=== PATIENT | male | born 1940 | race Caucasian/White ===

== ENCOUNTER 2016-11-30 06:47 | Day surgery (SDC) | payer MEDICARE, BC ==
[~2016-11-30] VITALS: Ht 175.3 cm; Wt 93.0 kg
[~2016-11-30 06:47] MED LIST: 1-ME1LIQ PO; ALPR0.5T3 PO; AMBI12.5 PO; AMOX500T PO; ASPI81TA82 PO; BISA10R PR; CENTTAB20 PO; CINN500T PO; DOCU1CAP39 PO; EFFE150C PO; HYDR-3580 PO; HYDR-755 PO; IRON27TA PO; MELA5CAP2 PO; MELO15TA2 PO; PROS5TAB2 PO; RANI150 PO; ROPI.5 PO; TERA2CAP3 PO; Z.0.COMMODE-3:1; Z.0.WALKERFRONT; ZOCO10TA PO
[2016-11-30 07:08] VITALS: BP 169/92; PULSE 90; RESP 20; TEMP 98.1; O2SAT 96
[2016-11-30] MEDS ORDERED: AMOX500T PO (07:21)
[2016-11-30] MEDS ORDERED: DICL75TA PO (07:21)
[2016-11-30] MEDS ORDERED: ZOCO20TA PO (07:21)
[2016-11-30] MEDS ORDERED: ROPI1TAB PO (07:21)
[2016-11-30] MEDS ORDERED: MELAPOW2 (07:21)
[2016-11-30] MEDS ORDERED: BIOT50005 PO (07:21)
[2016-11-30] MEDS ORDERED: CYCL1TAB29 PO (07:21)
[2016-11-30] MEDS ORDERED: ROPI0.5T PO (07:21)
[2016-11-30] MEDS ORDERED: ALPR0.5T3 PO (07:21)
[2016-11-30] MEDS ORDERED: FLUO1TAB17 (07:21)
[2016-11-30] MEDS ORDERED: RANI150T PO (07:21)
[2016-11-30] MEDS ORDERED: MELA3TAB23 (07:21)
[2016-11-30] MEDS ORDERED: ASPI81TA81 (07:21)
[2016-11-30] MEDS ORDERED: HYDR1CAP30 PO (07:21)
[2016-11-30] MEDS ORDERED: MOBI15TA PO (07:21)
[2016-11-30] MEDS ORDERED: AMLO5TAB2 PO (07:21)
[2016-11-30] MEDS ORDERED: PROS5TAB PO (07:21)
[2016-11-30] MEDS ORDERED: TERA2CAP3 PO (07:21)
[2016-11-30] MEDS ORDERED: LIDOCAINE 1%/EPINEPHrine 1:100,000 SOLN 20 ML VIAL ONE (07:28)
[2016-11-30 07:44] LABS: AUTOMATED NEUTROPHIL # 3.5 TH/MM3 (1.8-7.7); BASOPHIL % 0.5 % (0.0-2.0); EOSINOPHIL # 0.3 TH/MM3 (0-0.4); EOSINOPHIL % 4.5 % (0.0-4.0); HEMATOCRIT 37.3 % (39.0-51.0); HEMO FLAGS DIFF FINAL; LYMPH % 23.4 % (9.0-44.0); LYMPHOCYTE # 1.4 TH/MM3 (1.0-4.8); MEAN CELL VOLUME 86.5 FL (80.0-100.0); MEAN CORPUSCULAR HEMOGLOBIN 30.3 PG (27.0-34.0); MONO % 13.1 % (0.0-8.0); NEUT % 58.5 % (16.0-70.0); PLATELET COUNT 236 TH/MM3 (150-450); RED BLOOD COUNT 4.31 MIL/MM3 (4.50-5.90); RED CELL DISTRIBUTION WIDTH 13.5 % (11.6-17.2); WHITE BLOOD COUNT 5.9 TH/MM3 (4.0-11.0)
[2016-11-30] MEDS ORDERED: SODIUM CHLOR 0.9% 1000 ML IV SCH (07:45)
[2016-11-30 07:56] LABS: APTT (PATIENT) 26.4 SEC (24.3-30.1); PROTHROMBIN TIME - PATIENT 10.7 SEC (9.8-11.6)
[2016-11-30] MEDS ORDERED: MIDAZOLAM HCL 2 MG/2 ML VIAL ONE (08:27)
[2016-11-30 09:10] VITALS: BP 137/69; PULSE 76; RESP 20; TEMP 97.7; O2SAT 92
[2016-11-30 09:25] VITALS: BP 133/66; PULSE 73; RESP 16; O2SAT 93
[2016-11-30 10:00] VITALS: BP 129/75; PULSE 75; RESP 16; O2SAT 93
[2016-11-30 10:28] VITALS: BP 128/69; PULSE 72; RESP 16; O2SAT 93
[2016-11-30 11:00] VITALS: BP 140/71; PULSE 76; RESP 16; O2SAT 93
--- NOTE | 2016-11-30 14:58 | RADRPT ---
EXAM DATE/TIME: 11/30/2016 08:35 [facility] COMPARISON: No previous studies available for comparison. INDICATIONS : Right chest wall mass. SEDATION TIME: 30 minutes BIOPSY SITE: Right chest wall MEDICATION(S): 1.) 2 mg meperidine (Demerol) IV 2.) 200 mcg fentanyl (Sublimaze) IV DEVICE(S): 1.) 18 gauge Temno core biopsy needle MEDICAL HISTORY : Hypertension. SURGICAL HISTORY : None. ENCOUNTER: Initial ACUITY: 1 day PAIN SCORE: 0/10 LOCATION: Right chest A total of two core specimen(s) were obtained and sent to the laboratory for pathologic evaluation. PROCEDURE: 1. CT guided chest wall, right biopsy of the costochondral junction. 2. Conscious sedation with continuous EKG and oximetry monitoring. 3. EKG and oximetry remained stable throughout the procedure. Prior to the procedure informed consent was obtained. Any appropriate prior imaging studies were rev iewed. The site was prepped in a sterile fashion. Full sterile technique was used, including cap, mask, marky rile gloves and gown and a large sterile sheet. Hand hygiene and 2% chlorhexidine and/or betadine/al cohol prep was utilized per protocol for cutaneous antisepsis. The skin and subcutaneous tissues wer e infiltrated with local anesthetic solution. With CT guidance the previously identified target was localized. Biopsy was performed using the presc ribed needle as above. Adequate hemostasis was obtained with compression at the puncture site. Follow-up CT scan reveals no hemorrhage. The patient tolerated the procedure well and there were no complications. The patient was returned to the Radiology Outpatient Unit in stable condition. CONCLUSION: Uncomplicated CT guided biopsy. Zhen Calvin MD on November 30, 2016 at 14:56 Board Certified Radiologist. This report was verified electronically.
== END 2016-11-30 11:15 | disposition home or self-care (01) ==
LOC: HRAD 06:47 → HRIP 06:49 → EDSTATUS 07:00 → HRAD 11:15
PROVIDERS: ATTEND Specialist
DX: R22.2 Localized swelling, mass and lump, trunk (principal); I10 Essential (primary) hypertension
CPT/HCPCS: 20206; 77012; 85025; 85610; 85730; 88307; 99152; 99153; J2250; J3010; J7030; 88305

== ENCOUNTER 2017-04-07 07:30 | Inpatient (IN) | payer MEDICARE, BC ==
[~2017-04-07] VITALS: Ht 175.3 cm; Wt 91.0 kg
[~2017-04-07 07:30] MED LIST changes: -1-ME1LIQ PO; -AMBI12.5 PO; +AMLO5TAB2 PO; -AMOX500T PO; -ASPI81TA82 PO; -BISA10R PR; -CENTTAB20 PO; -CINN500T PO; +CYCL1TAB29 PO; -DOCU1CAP39 PO; -EFFE150C PO; +FLUO1TAB17 PO; -HYDR-3580 PO; -HYDR-755 PO; +HYDR1CAP30 PO; -IRON27TA PO; -MELA5CAP2 PO; -MELO15TA2 PO; +PROS5TAB PO; -PROS5TAB2 PO; -RANI150 PO; +RANI150T PO; -ROPI.5 PO; +ROPI0.5T PO; -Z.0.COMMODE-3:1; -Z.0.WALKERFRONT; -ZOCO10TA PO; +ZOCO20TA PO
[2017-05-12] MEDS ORDERED: EPIN1INJ24 IM (13:42)
[2017-05-12] MEDS ORDERED: CLON0.5T PO (13:42)
[2017-05-12] MEDS ORDERED: OPTI0.5D3 EACH EYE (13:42)
[2017-07-11] MEDS ORDERED: BIONSOL EACH EYE (12:10)
[2017-07-11] MEDS ORDERED: PANT40TA3 PO (12:10)
[2017-07-11] MEDS ORDERED: CENTCHW3 PO (12:10)
[2017-07-11] MEDS ORDERED: VITA1000 PO (12:10)
[2017-07-11] MEDS ORDERED: HYDR-3580 PO (12:10)
[2017-07-11] MEDS ORDERED: CINN500C13 PO (12:10)
[2017-07-11] MEDS ORDERED: AMPI500C8 PO (12:10)
[2017-07-12] MEDS ORDERED: INSULIN HUMAN REGULAR 1,000 UNITS/10 ML VIAL SQ PRN (08:00)
[2017-07-12] MEDS ORDERED: CHLORHEXIDINE GLUCONATE 2 % 1 PACK (2 CLOTHS) TOPICAL PRN (08:00)
[2017-07-12] MEDS ORDERED: SODIUM CHLORID 0.9% 500 ML IV PRN (08:00)
[2017-07-12] MEDS ORDERED: LACTATED RINGER'S 1000 ML IV PRN (08:00)
[2017-07-12] MEDS ORDERED: POVIDONE IODINE 5% (ANTISEPSIS KIT) 4 APPLICATIONS EACH NARE PRN (08:00)
[2017-07-12] MEDS ORDERED: METOPROLOL TARTRATE 25 MG TAB PO PRN (08:00)
[2017-07-12] MEDS ORDERED: VANCOMYCIN 1000 MG/NS 250 ML (for <70 kg) IV SCH ×2 (08:15)
[2017-07-12] MEDS ORDERED: POVIDONE IODINE 7.5% SCRUB 118 ML BOTTLE TOPICAL SCH (08:15)
[2017-07-12] MEDS ORDERED: ceFAZolin 2 GM PREMIX 50 ML IV SCH (08:15)
[2017-07-12] MEDS ORDERED: GENTAMICIN SULFATE 80 MG/2 ML VIAL ONE (08:40)
[2017-07-12] MEDS ORDERED: FAMOTIDINE 20 MG/2 ML VIAL ONE (10:26)
[2017-07-12] MEDS ORDERED: ACETAMINOPHEN 1000 MG/100 ML 100 ML IV ONE (10:26)
[2017-07-12] MEDS ORDERED: ROCURONIUM INJ 50 MG/5 ML SYRINGE IV PUSH ONE (12:00)
[2017-07-12] MEDS ORDERED: PHENYLEPH/NS 1000 MCG/10 ML SYR IV ONE (12:00)
[2017-07-12] MEDS ORDERED: LIDOCAINE HCL 1% PF 5 ML AMPULE OTHER ONE (12:00)
[2017-07-12] MEDS ORDERED: ONDANSETRON HCL 4 MG/2 ML VIAL IV PUSH ONE (12:00)
[2017-07-12] MEDS ORDERED: DEXAMETHASONE SOD PHOS 4 MG/ML VIAL IV ONE (12:00)
[2017-07-12] MEDS ORDERED: PROPOFOL 200 MG/20 ML AMP IV ONE (12:00)
[2017-07-12] MEDS ORDERED: MIDAZOLAM HCL 2 MG/2 ML VIAL IV ONE (12:00)
[2017-07-12] MEDS ORDERED: ePHEDrine/NS 25 MG/5 ML SYR IV ONE (12:00)
[2017-07-12] MEDS ORDERED: ePHEDrine/NS 25 MG/5 ML SYR ONE (12:16)
[2017-07-12] MEDS: LACTATED RINGER'S 1000 ML INJ 1,000 ML IV SCH (13:04)
--- NOTE | 2017-07-12 13:11 | PD.OP ---
cc: Jesse Mariano. Operative Report Date of Surgery: Jul 12, 2017 Preoperative Diagnosis: Cervical spinal stenosis. Cervical radiculopathy. Cervical myelopathy. Status post corpectomy of C4 with decompression and anterior fusion C3 to C6 Postoperative Diagnosis: Same Procedure: Posterior cervical fusion C3 4, C4 5, C5 6. Placement of intra-facet cages bilateral C3 4, right C4 5, bilateral C5 6. Right posterior iliac crest bone graft Anesthesia: Gen. Surgeon: Jesse Mariano [employer] Aid(s): MICHOACANO Avalos Operation and Findings: EBL: 100 cc INDICATIONS: This patient is a 76-year-old male with severe instability and cervical stenosis with myelopathic findings. He's had an anterior decompression and fusion C3 to C6. He now presents for staged posterior cervical fusion across the same levels NOTE: Marli Avalos PA-C was present for the entire surgical procedure as my human resource assistant. In my medical opinion her skill and care was necessary for proper management of this patient PROCEDURE: The patient was brought the operating room and anesthetized in the supine position. The patient was positioned prone on a [place] table. The arms were placed out along the side and taping was utilized to ensure adequate visualization. AP and lateral radiographic images were used identifying the proper level and allowing excellent exposure for purpose of the cervical fusion. A timeout was done and antibiotics were given within a routine time window. A small incision was made over the left iliac crest bone graft. A series of cores of bone graft were harvested with a special percutaneous device. The bone graft was taken to the back table to be mixed with stem cell bone graft for the later part of the case Using AP and lateral radiographs, skin markings were made. On the right side and 18-gauge spinal needle was placed down to the proper level. The left side a separate incision was made and we used the [employer] system. Exposure was afforded down to the proper level. Under visualization, a chisel was placed down to the C 56 level. This was confirmed under radiographs to be in proper position. Exposure was satisfactory. This is placed down into the facet joint at that level. A decorticating device was utilized decorticating the bone of the facet above and below. A retractor was placed down over the access chisel allowing exposure to the joint and exposure to the articular cartilage. A drilling system was utilized removing cartilage and bone this region followed by a rasp. On the back table demineralized bone matrix was mixed with Nucel stem cells and a autogenous bone graft. A combination of both these were then paced placed into proper cages. The cages were impacted into the proper position and checked again under AP and lateral fluoroscopic images. A transfixation screw was placed into the cage having excellent fixation into the facet joint of the level above. The back side of the cage was filled with additional bone graft which was tamped into position. The retractor was removed. On the right side a separate incision was made. Using the likewise sequence of access to the same level, an incision was made allowing visualization for placement of an access chisel which was placed into the joint followed by decortication with excellent visualization. A final retractor was positioned holding this while we were able to drill and use the rasp. The joint was prepared and we created a space for the cage. The cage was filled with bone graft and impacted in proper position. A transfixation screw was fixated at that time and alignment was satisfactory. Additional bone graft placed along the posterior aspect of the cage and the facet joint and was tamped into position. At the C4 5 level, this was repeated in the likewise fashion starting from the right side. A decorticating device was utilized decorticating the bone of the facet above and below. A retractor was placed down over the access chisel allowing exposure to the joint and exposure to the articular cartilage. A drilling system was utilized removing cartilage and bone this region followed by a rasp. On the back table demineralized bone matrix was mixed with Nucel stem cells and a autogenous bone graft. A combination of both these were then paced placed into proper cages. The cages were impacted into the proper position and checked again under AP and lateral fluoroscopic images. A transfixation screw was placed into the cage having excellent fixation into the facet joint of the level above. The back side of the cage was filled with additional bone graft which was tamped into position. The retractor was removed. On the right side there did not appear to be a viable joint which was also confirmed by CT scan. It was ill advised to proceed forward with placing a cage to the left at the C4-C5 level. At the C3 4 level, this was repeated in the likewise fashion. A decorticating device was utilized decorticating the bone of the facet above and below. A retractor was placed down over the access chisel allowing exposure to the joint and exposure to the articular cartilage. A drilling system was utilized removing cartilage and bone this region followed by a rasp. On the back table demineralized bone matrix was mixed with Nucel stem cells and a autogenous bone graft. A combination of both these were then paced placed into proper cages. The cages were impacted into the proper position and checked again under AP and lateral fluoroscopic images. A transfixation screw was placed into the cage having excellent fixation into the facet joint of the level above. The back side of the cage was filled with additional bone graft which was tamped into position. The retractor was removed. On the right side this was repeated in the likewise fashion. Using the likewise sequence of access to the same level. An access chisel was placed into the joint followed by decortication with excellent visualization. A final retractor was positioned holding this while we were able to drill and use the rasp. The joint was prepared and we created a space for the cage. The cage was filled with bone graft and impacted in proper position. A transfixation screw was fixated at that time and alignment was satisfactory. Additional bone graft placed along the posterior aspect of the cage and the facet joint and was tamped into position. Intraoperative x-rays in AP and lateral plane showed excellent positioning and stabilization . The wound was irrigated copiously. Hemostasis was controlled. The fascia was closed with interrupted Vicryl suture skin and subcutaneous tissue with 3-0 Vicryl suture followed by Dermabond. The sponge count needle counts and sponge counts were all correct. The patient tolerated the procedure well as taken to the recovery room in satisfactory condition. FINDINGS: This patient had a severe deformity. A typical findings of the facet joint lead to a very tedious dissection allowing excellent exposure and placement of the cages. There was no complication that was appreciated Jesse Mariano MD Jul 12, 2017 13:11
[2017-07-12] MEDS ORDERED: HYDR-3580 PO (13:12)
[2017-07-12] MEDS ORDERED: Post-op Orders (for Pharmacy) MISC XX ONE (13:15)
[2017-07-12] MEDS ORDERED: ONDANSETRON HCL 4 MG/2 ML VIAL IV PUSH PRN (13:15)
[2017-07-12] MEDS ORDERED: SODIUM CHLORIDE 0.9% FLUSH 5 ML FLUSH IVF PRN (13:15)
[2017-07-12] MEDS ORDERED: ACETAMINOPHEN/HYDROcodone 325 MG/7.5 MG TAB PO PRN (13:15)
[2017-07-12] MEDS ORDERED: ALPRAZolam 0.5 MG TAB PO PRN (13:15)
[2017-07-12] MEDS ORDERED: MORPHINE SULFATE 4 MG/ML INJ IV PUSH PRN (13:15)
[2017-07-12] MEDS ORDERED: hydrOXYzine PAMOATE 25 MG CAP PO PRN (13:15)
[2017-07-12] MEDS ORDERED: BISACODYL 10 MG SUPP RECTAL PRN (13:15)
[2017-07-12] MEDS ORDERED: *morphine SULFATE 8 MG/ML PERIprocedure ONLY ONE (14:49)
[2017-07-12 14:57] VITALS: BP 121/64; PULSE 89; RESP 17; TEMP 95.6; O2SAT 94
[2017-07-12] MEDS ORDERED: DO NOT ADM ANY ANTICOAGULANT DRUGS PRN (15:15)
[2017-07-12] MEDS: ACETAMINOPHEN/HYDROcodone 325 MG/7.5 MG TAB PO PRN (18:34)
[2017-07-12] MEDS: FLUoxetine HCL 20 MG CAP PO SCH ×2 (18:34→21:32)
--- NOTE | 2017-07-12 18:43 | RADRPT ---
EXAM DATE/TIME: 07/12/2017 12:57 [facility] COMPARISON: [facility] ([facility]), June 30, 2017, 16:51. INDICATIONS : C3-C6 Posterior cervical fusion. MEDICAL HISTORY : Hypertension. Gastroesophageal reflux disease. Rheumatoid arthritis. SURGICAL HISTORY : Anterior cervical disc fusion. ENCOUNTER: Initial ACUITY: 1 day PAIN SCORE: Non-responsive. LOCATION: Cervical spine. FINDINGS: Status post anterior cervical fusion from C3-C6. There appears to be good alignment on these 2 views. The hardware is grossly intact. CONCLUSION: Good alignment on this postoperative examination. Miguel Shafer MD on July 12, 2017 at 18:41 Board Certified Radiologist. This report was verified electronically.
[2017-07-12 19:15] VITALS: BP 136/65; PULSE 69; RESP 19; TEMP 96.4; O2SAT 98
[2017-07-12] MEDS: SODIUM CHLORIDE 0.9% FLUSH 5 ML FLUSH IVF SCH (21:00)
[2017-07-12] MEDS ORDERED: clonazePAM 0.5 MG TAB PO SCH (21:00)
[2017-07-12] MEDS ORDERED: TERAZOSIN HCL 1 MG CAP PO SCH (21:00)
[2017-07-12] MEDS: CYCLOBENZAPRINE HCL 10 MG TAB PO SCH (21:31)
[2017-07-12] MEDS: amLODIPine BESYLATE 5 MG TAB PO SCH (21:32)
[2017-07-12 23:45] VITALS: BP 136/70; PULSE 96; RESP 18; TEMP 96; O2SAT 94
[2017-07-13] MEDS: LACTATED RINGER'S 1000 ML INJ 1,000 ML IV SCH (01:34)
[2017-07-13 04:36] VITALS: BP 124/69; PULSE 96; RESP 18; TEMP 97.6; O2SAT 92
[2017-07-13 08:00] VITALS: BP 139/73; PULSE 95; RESP 18; TEMP 96.7; O2SAT 95
[2017-07-13] MEDS: CYCLOBENZAPRINE HCL 10 MG TAB PO SCH (08:40)
[2017-07-13] MEDS: FLUoxetine HCL 20 MG CAP PO SCH ×2 (08:40→12:13)
[2017-07-13] MEDS: amLODIPine BESYLATE 5 MG TAB PO SCH (08:40)
[2017-07-13] MEDS: SODIUM CHLORIDE 0.9% FLUSH 5 ML FLUSH IVF SCH (08:45)
[2017-07-13] MEDS ORDERED: MULTIVITAMINS/MINERALS THERAPEUTIC TAB PO SCH (09:00)
[2017-07-13] MEDS ORDERED: PRAVASTATIN SOD 40 MG TAB PO SCH (09:00)
[2017-07-13] MEDS ORDERED: DOCUSATE SODIUM 100 MG CAP PO SCH (09:00)
[2017-07-13 10:10] VITALS: O2SAT 97
[2017-07-13 11:41] VITALS: BP 139/64; PULSE 90; RESP 18; TEMP 97.8; O2SAT 96
[2017-07-13] MEDS: ACETAMINOPHEN/HYDROcodone 325 MG/7.5 MG TAB PO PRN (12:13)
--- NOTE | 2017-07-13 13:11 | HHI.DCPOC ---
Discharge Care Plan Diagnosis: (1) Cervical stenosis of spine (2) Cervical myelopathy with cervical radiculopathy Your Health Problems Are: Incision/Drains Swelling Goals to Promote Your Health * To prevent worsening of your condition and complications * To maintain your health at the optimal level Directions to Meet Your Goals Take your medications as prescribed Follow your dietary instruction Follow activity as directed Keep your appointments as scheduled Take your immunizations and boosters as scheduled If your symptoms worsen call your PCP, if no PCP go to Urgent Care Center or Emergency Room Smoking is Dangerous to Your Health. Avoid second hand smoke Call the 24-hour hour crisis hotline for domestic abuse at Erma Ragland Jul 13, 2017 13:11
--- NOTE | 2017-07-13 13:13 | HHI.DS ---
Discharge Summary Admission Date Jul 12, 2017 at 07:25 Discharge Date: Jul 13, 2017 Admitting Diagnosis see below Diagnosis: (1) Cervical stenosis of spine Diagnosis: Principal ICD Codes: M48.02 - Spinal stenosis, cervical region (2) Cervical myelopathy with cervical radiculopathy Diagnosis: Principal ICD Codes: M47.12 - Other spondylosis with myelopathy, cervical region Procedures Posterior cervical fusion C34, 45, 56, bone graft. Brief History This is a 76 year old male patient... previous ACDF 07/01 C3-6 corpectomy C4. Stage psf C3-6 Pt Condition on Discharge: Stable Discharge Disposition: Discharge Home Discharge Instructions Diet Instructions: As Tolerated, No Restrictions, High Fiber Diet Activities You Can Perform: See Additionl Instruction Activities to Avoid: Strenuous Activity Additional Activity Instruc.: Full-time brace wear when out of bed x 4-6 weeks New Medications: Hydrocodone-Acetaminophen (Hydrocodone-Acetaminophen) 7.5-325 mg Tab 1 TAB PO Q4H PRN for PAIN, #50 TAB Continued Medications: Alprazolam (Alprazolam) 0.5 Mg Tab 0.5 MG PO BID PRN for ANXIETY, TAB 0 Refills Amlodipine (Amlodipine) 5 Mg Tab 5 MG PO BID for Blood Pressure Management, #30 TAB 0 Refills Ampicillin (Ampicillin) 500 Mg Cap 500 MG PO QID for UTI, CAP 0 Refills Carboxymethylcellulos/Glycerin (Refresh Optive Eye Drops) 15 Ml Drops 1 DROP EACH EYE DAILY Cholecalciferol (Vitamin D-1000) 1,000 Unit Tab 1000 UNITS PO DAILY for Nutritional Supplement, #1 BOTTLE 0 Refills Cinnamon (Eql Cinnamon) 500 Mg Cap 1000 MG PO DAILY for Nutritional Supplement, #1 BOTTLE Clonazepam (Clonazepam) 0.5 Mg Tab 0.5 MG PO HS, #60 TAB 0 Refills Cyclobenzaprine (Flexeril) 10 Mg Tab 10 MG PO BID for Muscle Spasm, #90 TAB 0 Refills Dextran 70 0.1%-Hypromellose 2910 0.3% Drops (Bion Tears PF Opthalmic Drops) 0.1 -0.3%/0.4 Ml Soln 1 DROP EACH EYE PRN, BOX 0 Refills Epinephrine Inj (Epinephrine Inj) 0.15 Mg/0.3 Ml Inj Unknown Dose IM DIRECTED, #1 INJECTION 0 Refills PT STATES HE HAS NEVER HAD TO USE, STATES HE KEEPS IN CASE HE DOES HAVE AN ALLERGIC REACTION TO SOME FOOD OR ENVIRONMENTAL EXPOSURES Finasteride (Proscar) 5 Mg Tab 5 MG PO DAILY for Manage Prostate Problems, #30 TAB 0 Refills Do not crush. Fluoxetine HCl (Pmdd) (Fluoxetine HCl) 20 Mg Tab 20 MG PO QID Hydrocodone-Acetaminophen (Hydrocodone-Acetaminophen) 7.5-325 mg Tab 1 TAB PO Q6H PRN for PAIN, TAB 0 Refills Hydroxyzine Pamoate (Hydroxyzine Pamoate) 25 Mg Cap 25 MG PO Q6H PRN for ANXIETY, CAP 0 Refills Multiple Vitamins W/ Minerals (Centrum Silver) 400 Mcg-250 Mcg Chw 1 TAB PO DAILY for Nutritional Supplement Pantoprazole (Pantoprazole) 40 Mg Tab 40 MG PO DAILY for Reflux, #30 TAB 0 Refills Ranitidine (Ranitidine) 150 Mg Tab 150 MG PO QID for Heartburn Management, #30 TAB 0 Refills Ropinirole (Ropinirole) 0.5 Mg Tab 0.5 MG PO QID, #90 TAB 0 Refills Simvastatin (Zocor) 20 Mg Tab 20 MG PO DAILY for Cholesterol Management, #30 TAB 0 Refills Terazosin (Terazosin) 2 Mg Cap 2 MG PO HS, #30 CAP 0 Refills Erma Ragland Jul 13, 2017 13:13
--- NOTE | 2017-07-13 13:16 | PD.ORT.PN ---
Subjective Subjective Remarks Doing well. He is dressed and 'ready to go'. He states he has neck pain but its very tolerable. He denies any new arm symptoms. No new leg pain. He states he has a mild sore throat but 'that's all'. No new CP, SOB or ab pain. Objective Vitals Vital Signs Date Time Temp Pulse Resp B/P (MAP) Pulse Ox O2 Delivery O2 Flow Rate FiO2 07/13/17 11:41 97.8 90 18 139/64 (89) 96 07/13/17 08:00 96.7 95 18 139/73 (95) 95 07/13/17 04:36 97.6 96 18 124/69 (87) 92 07/12/17 23:45 96.0 96 18 136/70 (92) 94 07/12/17 19:17 Nasal Cannula 2.00 07/12/17 19:15 96.4 69 19 136/65 (88) 98 07/12/17 14:57 95.6 89 17 121/64 (83) 94 07/12/17 14:39 92 16 129/70 (89) 100 Nasal Cannula 2 07/12/17 14:00 85 16 144/78 (100) 95 Nasal Cannula 2 07/12/17 13:45 91 16 139/76 (97) 96 Nasal Cannula 2 07/12/17 13:30 97.9 98 16 137/78 (97) 93 Nasal Cannula 2 I/O 07/12/17 07/12/17 07/12/17 07/13/17 07/13/17 07/13/17 07:00 15:00 23:00 07:00 15:00 23:00 Intake Total 1500 ml 360 ml 1167 ml Output Total 1025 ml Balance 475 ml 360 ml 1167 ml Intake Oral 360 ml 480 ml IV Total 1500 ml 687 ml Output Estimated Blood Loss 25 ml Other 1000 ml # Voids 1 1 # Bowel Movements 0 0 Procedures Posterior cervical fusion C34, 45, 56, bone graft. 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 No HHC needed. Continue cervical brace for 4-6 weeks Ok to change dressing and shower in 48 hours. PO pain meds as needed. [place] 7.5mg written. No strenuous activity with UEs. F/U in 2 weeks as scheduled. Erma Ragland Jul 13, 2017 13:16
== END 2017-07-13 14:16 | disposition home or self-care (01) | DRG 455 ==
LOC: HSDI 07-12 07:25 → N06B 07-12 15:18
PROVIDERS: ADMIT Orthopaedic Surgery Orthopaedic Surgery of the Spine; ATTEND Orthopaedic Surgery Orthopaedic Surgery of the Spine
PROC: 0RG2071 Fusion of 2 or more Cervical Vertebral Joints with Autologous Tissue Substitute, Posterior Approach, Posterior Column, Open Approach (ICD-10-PCS; 2017-07-12)
PROC: 0QB23ZZ Excision of Right Pelvic Bone, Percutaneous Approach (ICD-10-PCS; 2017-07-12)
PROC: 0RG20AJ Fusion of 2 or more Cervical Vertebral Joints with Interbody Fusion Device, Posterior Approach, Anterior Column, Open Approach (ICD-10-PCS; principal; 2017-07-12 10:26)
DX: M47.12 Other spondylosis with myelopathy, cervical region (principal); M54.12 Radiculopathy, cervical region; M48.02 Spinal stenosis, cervical region
CPT/HCPCS: 72040; 76000; 94150; C1713; J0131; J0690; J1100; J1580; J2250; J2270; J2370; J2405; J3010; J3370; J7050; J7120

== ENCOUNTER 2017-04-21 07:30 | Inpatient (IN) | payer MEDICARE, BC ==
[~2017-04-21] VITALS: Ht 175.3 cm; Wt 95.7 kg
[~2017-04-21 07:30] MED LIST changes: +DICL75TA PO; +MELA3TAB23 PO; +ROPI1TAB PO
[2017-05-12] MEDS ORDERED: TRAM50TA PO (13:42)
[2017-05-12] MEDS ORDERED: EPIN1INJ24 IM (13:42)
[2017-05-12] MEDS ORDERED: CLON0.5T PO (13:42)
[2017-05-12] MEDS ORDERED: PANT20TA2 PO (13:42)
[2017-05-12] MEDS ORDERED: AMLO5TAB2 PO (13:42)
[2017-05-12] MEDS ORDERED: SUCR1TAB PO (13:42)
[2017-05-12] MEDS ORDERED: OPTI0.5D3 EACH EYE (13:42)
[2017-06-30] MEDS ORDERED: PROPOFOL 200 MG/20 ML AMP ONE (08:27)
[2017-06-30] MEDS ORDERED: ACETAMINOPHEN 1000 MG/100 ML 100 ML IV ONE (08:27)
--- NOTE | 2017-06-30 09:02 | MH ---
cc: GALINA BEARD DATE OF ADMISSION 06/30/2017 ADMISSION DIAGNOSIS Cervical spinal stenosis. HISTORY This is a 76-year-old male with severe spinal stenosis and evidence of cervical radiculopathy and cervical myelopathy. Investigative studies shows evidence of a spondylolisthesis C3-4 with evidence of a retrolisthesis C4-5. The patient has significant spinal stenosis with cervical radiculopathy and myelopathic findings. He presents for surgical treatment. PAST MEDICAL HISTORY, SOCIAL HISTORY, FAMILY HISTORY, REVIEW OF SYSTEMS See attached notes. PHYSICAL EXAMINATION GENERAL: A 76-year-old male in moderate distress with his neck and arms. HEENT: Normocephalic, atraumatic. Pupils equal, round, reactive to light and accommodation. Extraocular motions intact. NECK: Supple. CHEST: Clear. HEART: Regular rate and rhythm. ABDOMEN: Soft, nontender, normoactive bowel sounds. MUSCULOSKELETAL: The patient cervical spine restricted range of motion, pain with range of motion, positive Spurling's maneuver. Motor examination both arms see attached records. IMPRESSION 1. Cervical spinal stenosis C3-C6. 2. Cervical radiculopathy. 3. Cervical myelopathy. PLAN Anterior cervical diskectomy, decompression with bilateral foraminotomies C3-4, C4-5, C5-6, corpectomy C4, possible corpectomy C5, interbody cages, anterior plate fixation, bone grafting, possible allograft bone grafting. CONSENT The risks of surgery including infection, bleeding, loss of motion, continued pain, need for further surgery, neurologic and vascular injury. The patient understood these risks and wishes to press on with surgery as outlined above. Galina Beard MD MCG/EO /10:25 PM /8:57 AM
[2017-06-30] MEDS ORDERED: SODIUM CHLOR 0.9% 250 ML INJ 250 ML ONE (10:30)
[2017-06-30] MEDS ORDERED: VANCOMYCIN HCL 1000 MG VIAL ONE (10:31)
[2017-06-30] MEDS ORDERED: BUPIVACAINE/EPINEPHRINE 0.25% 50 ML VIAL ONE (10:38)
[2017-06-30] MEDS ORDERED: GENTAMICIN SULFATE 80 MG/2 ML VIAL ONE ×2 (10:38→13:33)
[2017-06-30] MEDS: VANCOMYCIN 1000 MG/NS 250 ML (for <70 kg) IV SCH ×4 (10:41→10:49)
[2017-06-30] MEDS ORDERED: CHLORHEXIDINE GLUCONATE 2 % 1 PACK (2 CLOTHS) TOPICAL PRN (10:45)
[2017-06-30] MEDS ORDERED: METOPROLOL TARTRATE 25 MG TAB PO PRN (10:45)
[2017-06-30] MEDS ORDERED: POVIDONE IODINE 7.5% SCRUB 118 ML BOTTLE TOPICAL SCH (10:45)
[2017-06-30] MEDS ORDERED: SODIUM CHLORID 0.9% 500 ML IV PRN (10:45)
[2017-06-30] MEDS ORDERED: POVIDONE IODINE 5% (ANTISEPSIS KIT) 4 APPLICATIONS EACH NARE PRN (10:45)
[2017-06-30] MEDS ORDERED: LACTATED RINGER'S 1000 ML IV PRN (10:45)
[2017-06-30] MEDS ORDERED: INSULIN HUMAN REGULAR 1,000 UNITS/10 ML VIAL SQ PRN (10:45)
[2017-06-30] MEDS ORDERED: PROPOFOL 500 MG/50 ML INJ 50 ML ONE (12:04)
[2017-06-30] MEDS ORDERED: FAMOTIDINE 20 MG/2 ML VIAL ONE (12:04)
[2017-06-30] MEDS: ceFAZolin 2 GM PREMIX 50 ML IV SCH ×2 (12:37→16:37)
[2017-06-30] MEDS ORDERED: DEXAMETHASONE SOD PHOS 4 MG/ML VIAL IV ONE (14:40)
[2017-06-30] MEDS ORDERED: PROPOFOL 200 MG/20 ML AMP IV ONE ×2 (14:40→14:49)
[2017-06-30] MEDS ORDERED: PHENYLEPH/NS 1000 MCG/10 ML SYR IV ONE ×2 (14:40→14:49)
[2017-06-30] MEDS ORDERED: MIDAZOLAM HCL 2 MG/2 ML VIAL IV ONE (14:40)
[2017-06-30] MEDS ORDERED: ROCURONIUM INJ 50 MG/5 ML SYRINGE IV PUSH ONE (14:40)
[2017-06-30] MEDS ORDERED: ePHEDrine/NS 25 MG/5 ML SYR IV ONE ×2 (14:40→14:49)
[2017-06-30] MEDS ORDERED: LIDOCAINE HCL 1% PF 5 ML AMPULE OTHER ONE (14:40)
[2017-06-30] MEDS ORDERED: LACTATED RINGER'S 1000 ML INJ 2,000 ML IV ONE (14:46)
--- NOTE | 2017-06-30 16:52 | EKG ---
Date Performed: 06/30/2017 Time Performed: 10:29:52 PTAGE: 76 years EKG: Sinus rhythm WITH SINUS ARRHYTHMIA MINIMAL VOLTAGE CRITERIA FOR LVH, CONSIDER NORMAL VARIANT INFERIOR MYOCARDIAL INFARCTION , PROBABLY OLD WITH POSTERIOR EXTENSION ABNORMAL ECG Since PREVIOUS TRACING , no significant change noted PREVIOUS TRACIN04/17/2015 10.40 DOCTOR: Melani Pacheco Interpretating Date/Time 06/30/2017 16:52:26
--- NOTE | 2017-06-30 17:15 | HHI.PR ---
Immediate Post Op Note Procedure Date: Jun 30, 2017 Pre Op Diagnosis: (1) Spinal cord compression (2) Cervical myelopathy with cervical radiculopathy (3) Cervical stenosis of spine Post Op Diagnosis: (1) Spinal cord compression (2) Cervical myelopathy with cervical radiculopathy (3) Cervical stenosis of spine Surgeon: Dylan Mariano M.D. Review Specialist(s): Gloria Hobbs PA-C Procedure: C3-4, C4-5 anterior interbody fusion using allograft, C4 vertebral body reconstruction using tricortical iliac crest allograft, C5-6 anterior interbody fusion, ACC cage, C3-6 anterior spinal instrumentation Estimated blood loss: 500 cc Anesthesia: General Drains: None Patient to: PACU Patient Condition: Good Implant/Devices: SEE IMPLANT LOG (if applicable) Date/Time of Procedure: SEE SURGICAL CARE RECORD Dylan Mariano MD Jun 30, 2017 17:15
[2017-06-30] MEDS ORDERED: DO NOT ADM ANY ANTICOAGULANT DRUGS PRN (17:30)
[2017-06-30] MEDS ORDERED: Post-op Orders (for Pharmacy) MISC XX ONE (18:45)
[2017-06-30] MEDS ORDERED: BISACODYL 10 MG SUPP RECTAL PRN (18:45)
[2017-06-30] MEDS ORDERED: SODIUM CHLORIDE 0.9% FLUSH 5 ML FLUSH IVF PRN (18:45)
[2017-06-30] MEDS ORDERED: MORPHINE SULFATE 4 MG/ML INJ IV PUSH PRN (18:45)
[2017-06-30] MEDS ORDERED: ACETAMINOPHEN/HYDROcodone 325 MG/7.5 MG TAB PO PRN ×2 (18:45)
[2017-06-30] MEDS ORDERED: ALPRAZolam 0.5 MG TAB PO PRN (18:45)
[2017-06-30] MEDS ORDERED: ONDANSETRON HCL 4 MG/2 ML VIAL IV PRN (18:45)
[2017-06-30] MEDS ORDERED: hydrOXYzine PAMOATE 25 MG CAP PO PRN (18:45)
[2017-06-30] MEDS: LACTATED RINGER'S 1000 ML INJ 1,000 ML IV SCH (19:00)
--- NOTE | 2017-06-30 19:36 | MP ---
cc: ANGIE BEARD RENATO A. MD DATE OF SURGERY June 30, 2017 PREOPERATIVE DIAGNOSIS 1. C3-C6 spinal stenosis, spinal cord compression. 2. Bilateral cervical radiculitis, cervical myelopathy. 3. Cervical spine severe degenerative disease osteoarthritis. POSTOPERATIVE DIAGNOSIS 1. C3-C6 spinal stenosis, spinal cord compression. 2. Bilateral cervical radiculitis, cervical myelopathy. 3. Cervical spine severe degenerative disease osteoarthritis. PROCEDURE PERFORMED C3-4, C4-5 anterior interbody fusion using tricortical iliac crest allograft, C4 vertebral body reconstruction using tricortical iliac crest allograft; C5-6 anterior interbody fusion, C5-6 SpineNet ACC anterior cervical cage; C3-C6 anterior spinal instrumentation using SpineNet Rauscher anterior spinal instrumentation. SURGEON Jim Beard MD BINDER CHAINSTITCH Gloria Hobbs PA-C ESTIMATED BLOOD LOSS 500 cc for the entire case. COMPLICATIONS None. ANESTHESIA General. DRAINS None. CONDITION Stable. PROCEDURE Dr. Jesse Beard and myself were co-surgeons. Dr. Jesse Beard performed the neuro-decompressive surgical portion of the procedure. He performed a C3-4, C4-5 anterior cervical diskectomy with a C4 complete corpectomy, a C5-6 anterior cervical diskectomy, anterior decompression and a left anterior iliac crest bone grafting. Using operative microscope, I was not present for his portion of the procedure. I performed the orthopedic fusion and spinal instrumentation stabilization portion of the procedure which is well-described in my operative note. My business support assistant Gloria Hobbs PA-C, was present for my portion of the case. She was medically necessary for my portion of the case because of the complexity of the case and to facilitate the performance of the procedure. The GLASS TUBE BENDER at the back table not a skill set for this case to manipulate the instruments e.g. multiple different kind of soft tissue retractors, trial implants, permanent implants with tricortical iliac crest bone grafting. The endplates at C3-4 and C4-5 were prepared for fusion. Angled curettes and burs were used. Tricortical iliac crest structural allograft was used for interbody fusions at C3-4 and C4-5 and for the C4 vertebral body reconstruction. Under fluoroscopic guidance the allograft was contoured in appropriate dimensions height, width and depth. In placed in a satisfactory manner. The interspace at C5-6 were prepared for fusion. Hyaline cartilage endplate was used using angled curettes and burs. A 6 10 x 12 ACC cage placed interspace in a satisfactory manner. The large osteophytes were removed anteriorly. A 54 mm SpineNet Rauscher plate was contoured appropriate dimensions. It was held in place with two pins and one small transfixion screw. This was done under the guidance of the AP and lateral fluoroscopy for appropriate positioning of the plate. Two screws were used in vertebral body of C3, C5 and C6. The screws in C3 and C6 were 16 mm in length and the screws in C5 were 14 mm in length. Each screws were 4 mm in the outer diameter with fixed angle screws. Each screws were drilled, inserted in the vertebral bodies and each screw head was appropriately locked to the plate. Intraoperative fluoroscopy AP and lateral plane confirmed satisfactory position of the bone graft at C3-4, C4-5 and the C4 vertebrae reconstruction using tricortical iliac crest allograft. Satisfactory position of bone graft at C5-6 and satisfactory position of the SpineNet ACC cage at C5-6 and satisfactory position of the spinal instrumentation from C3-C6. The wound was irrigated with copious amounts of sterile saline antibiotic solution. SurgiSeal was used. The patient was found to have complete hemostasis. No evidence any bleeding or oozing. Wound was closed over routine manner in multiple layers using 3-0 Vicryl suture. Skin was approximated with running subcuticular 4-0 Vicryl. Sterile dressings were applied. The patient placed in [place] cervical orthosis. The patient tolerated the procedure well and arrived to recovery room in stable and satisfactory condition. MD ZULEIMA Blandon/DWAIN /5:05 PM /7:12 PM
--- NOTE | 2017-06-30 20:07 | RADRPT ---
EXAM DATE/TIME: 06/30/2017 16:51 [facility] COMPARISON: No previous studies available for comparison. INDICATIONS : C3-4 C4-5 C5-6 anterior fusion. MEDICAL HISTORY : Hypertension. SURGICAL HISTORY : None. ENCOUNTER: Initial ACUITY: 1 day PAIN SCORE: Non-responsive. LOCATION: c-spine FINDINGS: Evidence of discectomy and fusion procedure with anterior instrumentation from C3 to C6. There are sc rews at each level except C4. Alignment is normal. No evidence of an acute complication. CONCLUSION: C3-C6 discectomy and fusion with anterior instrumentation. Normal alignment. No acute complication de monstrated. Bakari Ross MD on June 30, 2017 at 20:04 Board Certified Radiologist. This report was verified electronically.
[2017-06-30 20:30] VITALS: BP 124/71; PULSE 92; RESP 18; TEMP 96.3; O2SAT 96
[2017-06-30] MEDS ORDERED: TERAZOSIN HCL 1 MG CAP PO SCH (21:00)
[2017-06-30] MEDS: SODIUM CHLORIDE 0.9% FLUSH 5 ML FLUSH IVF SCH (21:00)
[2017-06-30] MEDS ORDERED: FLUOXETINE HCL 20 MG PO SCH (21:00)
[2017-06-30] MEDS ORDERED: NON-FORMULARY DRUG (Ranitidine 150 MG) PO SCH (21:00)
[2017-06-30] MEDS ORDERED: clonazePAM 0.5 MG TAB PO SCH (21:00)
[2017-06-30] MEDS: CYCLOBENZAPRINE HCL 10 MG TAB PO SCH (22:16)
[2017-06-30] MEDS: amLODIPine BESYLATE 5 MG TAB PO SCH (22:18)
[2017-07-01 00:43] VITALS: O2SAT 96
[2017-07-01 00:45] VITALS: BP 153/60; PULSE 97; RESP 18; TEMP 96.7; O2SAT 98
[2017-07-01 04:35] VITALS: BP 120/51; PULSE 90; RESP 18; TEMP 97; O2SAT 96
[2017-07-01] MEDS: LACTATED RINGER'S 1000 ML INJ 1,000 ML IV SCH (07:10)
[2017-07-01 08:00] VITALS: BP 159/80; PULSE 87; RESP 16; TEMP 96; O2SAT 96
--- NOTE | 2017-07-01 08:06 | PD.OP ---
cc: Dylan Mariano MD; Jesse Mariano MD Operative Report Date of Surgery: Jun 30, 2017 Preoperative Diagnosis: Cervical spinal stenosis. Cervical myelopathy. Cervical radiculopathy.. Spondylolisthesis, C3 4. Retrolisthesis, C4 5 Postoperative Diagnosis: Same Procedure: Anterocervical discectomy decompression and bilateral foraminotomies C3 4, C4 5 , C5 6. Vertebral body corpectomy, C4, complete. Left anterior iliac crest bone graft. Use of dilation port and microscope Anesthesia: Gen. Surgeon: Jesse Mariano Food Services Director(s): MICHOACANO Avalos Operation and Findings: EBL: 200 cc INDICATIONS: Patient is a 76-year-old white male with significant spinal stenosis related to advanced degenerative changes at the above levels. The patient manifests with a cervical radiculopathy and cervical myelopathy. He presents for surgical treatment. NOTE: Marli Avalos PA-C was present for the entire surgical procedure as my gynecological assistant. In my medical opinion her skill and care was necessary for proper management of this patient PROCEDURE: The patient was brought to the operating room and anesthetized in the supine position. This patient was positioned supine on the radiolucent table. All pressure points were protected in the anterior cervical spine and iliac crest was scrubbed with alcohol followed by Hibiclens followed by ChloraPrep. A timeout was done and antibiotics were given within 1 hour time window. Lateral radiographic images were used identifying the proper level. A right anterior incision was made in line with skin creases. The platysma was opened in line with the incision. Deep dissection continued in the interval between the carotid sheath and the esophagus. The longus-coli muscles were lifted on both sides and retractors were positioned allowing good exposure. Lateral radiographic images were used to identify the proper level. [place] style interosseous pins were placed at C3 and 5 allowing exposure to that level. The microscope was rolled into the field. A total discectomy was accomplished at C3 4 and C4 5 and posterior osteophytes were removed. A complete corpectomy of C4 was necessary. The posterior longitudinal ligament and annulus was taken down. Bilateral foraminotomies were accomplished. The endplates were squared up anticipating later bone grafting. A blunt probe could be placed out each foramen without evidence of nerve root compromise. The C3 pin was placed down to C6. An anterior exposure was accomplished. We performed a total discectomy with excision of the posterior annulus and posterior longitudinal ligament. Bilateral foraminotomies were accomplished. Osteophytes were removed. The endplates were squared up anticipating later bone grafting. A blunt probe could be placed out each foramen without evidence of nerve root compromise. The left iliac crest was approached. A small stab incision was made allowing percutaneous access to the anterior iliac crest. Multiple cores of cancellous bone were harvested and taken to the back table to be used for later bone grafting. The wound was irrigated anesthetized and closed with 4-0 Vicryl followed by Dermabond. The case was turned over to Dr. Dylan Mariano for fusion and instrumentation per his dictation. FINDINGS: There was severe spinal stenosis especially at the region posterior to C4. This created a difficult exposure. We were able to decompress this with a complete corpectomy of C4. We anticipated the possibility of a corpectomy of C5 but that was unnecessary. The final decompression was felt be very satisfactory. No complication was appreciated. NOTE: This surgery was performed in 2 parts. The first part was the neurosurgical decompression performed under the variable power stereo microscope by the undersigned in addition to the bone graft. The second portion of the surgery will be performed by the orthopedic spine component by co -surgeon, Dr. Dylan Mariano for the anterior fusion with interbody cage and anterior plate. The skill of 2 surgeons was necessary to perform distinct separate procedural services as dictated above and dictated in the following operative note by Dr. Dylan Mariano. Jesse Mariano MD Jul 01, 2017 08:06
--- NOTE | 2017-07-01 08:13 | PD.ORT.PN ---
Subjective Subjective Remarks Doing well. No complaints. No difficulty with swallowing. No difficulty with speech. Feels better strength already Objective Vitals Vital Signs Date Time Temp Pulse Resp B/P (MAP) Pulse Ox O2 Delivery O2 Flow Rate FiO2 07/01/17 04:35 97.0 90 18 120/51 (74) 96 07/01/17 00:45 96.7 97 18 153/60 (91) 98 07/01/17 00:43 96 Nasal Cannula 2.00 06/30/17 20:30 96.3 92 18 124/71 (88) 96 06/30/17 19:40 88 16 115/62 (79) 97 Nasal Cannula 2 06/30/17 19:30 97.5 85 16 120/60 (80) 96 Nasal Cannula 2 06/30/17 19:00 86 16 116/61 (79) 95 Nasal Cannula 2 06/30/17 18:45 87 15 115/62 (79) 95 Nasal Cannula 2 06/30/17 18:30 88 15 110/63 (79) 95 Nasal Cannula 2 06/30/17 18:15 87 15 108/64 (79) 95 Nasal Cannula 2 06/30/17 18:00 84 15 110/70 (83) 99 Nasal Cannula 3 06/30/17 17:45 87 15 114/69 (84) 98 Nasal Cannula 3 06/30/17 17:30 86 15 116/66 (83) 97 Nasal Cannula 3 06/30/17 17:25 97.4 88 18 122/61 (81) 100 Simple Mask 7 06/30/17 10:35 97.6 86 20 158/90 (112) 99 I/O 06/30/17 06/30/17 06/30/17 07/01/17 07/01/17 07/01/17 07:00 15:00 23:00 07:00 15:00 23:00 Intake Total 250 ml 1890 ml 1190 ml Output Total 1350 ml 550 ml Balance 250 ml 540 ml 640 ml Intake Oral 240 ml 240 ml IV Total 250 ml 1650 ml 950 ml Output Urine Total 550 ml 550 ml Estimated Blood Loss 500 ml Other 300 ml # Bowel Movements 1 1 Objective Remarks Dressing is dry. No abnormal swelling. Exam both arms almost normal. No pathologic reflexes Assessment & Plan Ortho Post Op Day #: 1 Problem List: Assessment and Plan Cervical spinal stenosis. Cervical radiculopathy. Cervical myelopathy. Corpectomy C4, anterior decompression and fusion C3 to C6, POD #1. PLAN: Discharge to home. [place] for pain. Full-time brace wear. Dry dressing change. Can shower in 2-3 days. Anticipate posterior cervical fusion at the same levels in 2 weeks Jesse Mariano MD Jul 01, 2017 08:13
--- NOTE | 2017-07-01 08:16 | HHI.DS ---
Discharge Summary Admission Date Jun 30, 2017 at 08:25 Discharge Date: Jul 01, 2017 Admitting Diagnosis Cervical spinal stenosis. Cervical radiculopathy. Cervical myelopathy Diagnosis: (1) Spinal cord compression ICD Codes: G95.20 - Unspecified cord compression (2) Cervical stenosis of spine ICD Codes: M48.02 - Spinal stenosis, cervical region (3) Cervical myelopathy with cervical radiculopathy ICD Codes: M47.12 - Other spondylosis with myelopathy, cervical region Brief History This is a 76 year old male patient who presents for cervical decompression and fusion. The patient has a significant spondylolisthesis at C3 4 with a retrolisthesis at C4 5 and significant spinal cord compression at those 2 levels plus C5 6. This patient presents for surgical treatment. PE at Discharge Dressing is dry. No abnormal swelling. Exam both arms almost normal. No pathologic reflexes Hospital Course This patient had a relatively unremarkable perioperative course. He was taken to the operating room on the date of admission. He had the above procedures with the fusion from C3 to C7. He did well. On postop day 1 he was out of bed, ambulating and having no difficulty with eating or swallowing. His dressing was dry and his motor examination was stable Pt Condition on Discharge: Good Discharge Disposition: Discharge Home Discharge Instructions Diet Instructions: As Tolerated, No Restrictions Activities You Can Perform: Weight Bearing as Jennifer Additional Activity Instruc.: Brace full-time. No driving. Able to shower in 2-3 days if dressing is dry Jesse Mariano MD Jul 01, 2017 08:16
[2017-07-01] MEDS ORDERED: HYDR-3580 PO (08:17)
[2017-07-01] MEDS: CYCLOBENZAPRINE HCL 10 MG TAB PO SCH (08:54)
[2017-07-01] MEDS: amLODIPine BESYLATE 5 MG TAB PO SCH (08:55)
[2017-07-01] MEDS: SODIUM CHLORIDE 0.9% FLUSH 5 ML FLUSH IVF SCH (09:00)
[2017-07-01] MEDS ORDERED: MULTIVITAMINS/MINERALS THERAPEUTIC TAB PO SCH (09:00)
[2017-07-01] MEDS ORDERED: NON-FORMULARY DRUG (Simvastatin (Zocor) 20 MG) PO SCH (09:00)
[2017-07-01] MEDS ORDERED: DOCUSATE SODIUM 100 MG CAP PO SCH (09:00)
[2017-07-01] MEDS ORDERED: FINASTERIDE 5 MG TAB PO SCH (09:00)
[2017-07-01] MEDS ORDERED: PRAVASTATIN SOD 40 MG TAB PO SCH (09:00)
[2017-07-01 10:50] VITALS: O2SAT 98
== END 2017-07-01 11:41 | disposition home or self-care (01) | DRG 472 ==
LOC: HSDI 06-30 08:25 → N06A 06-30 19:53
PROVIDERS: ADMIT Orthopaedic Surgery Orthopaedic Surgery of the Spine; ATTEND Orthopaedic Surgery Orthopaedic Surgery of the Spine
PROC: 0RT30ZZ Resection of Cervical Vertebral Disc, Open Approach (ICD-10-PCS; 2017-06-30)
PROC: 0QB33ZZ Excision of Left Pelvic Bone, Percutaneous Approach (ICD-10-PCS; 2017-06-30)
PROC: 0RG20A0 Fusion of 2 or more Cervical Vertebral Joints with Interbody Fusion Device, Anterior Approach, Anterior Column, Open Approach (ICD-10-PCS; principal; 2017-06-30 12:08)
DX: M48.02 Spinal stenosis, cervical region (principal); M50.01 Cervical disc disorder with myelopathy, high cervical region; M43.12 Spondylolisthesis, cervical region; M50.11 Cervical disc disorder with radiculopathy, high cervical region; M25.78 Osteophyte, vertebrae
CPT/HCPCS: 72040; 76000; 93005; 94150; C1713; J0131; J0690; J1100; J1580; J2250; J2370; J3010; J3370; J7050; J7120

== ENCOUNTER → 2017-05-12 | Outpatient (CLI) | payer MEDICARE, BC ==
[~2017-05-12] MED LIST changes: +AMOX500T PO; +AMPI500C8 PO; +ASPI81TA81; +BIONSOL EACH EYE; +BIOT50005 PO; +CENTCHW3 PO; +CINN500C13 PO; +CLON0.5T PO; +EPIN1INJ24 IM; +HYDR-3580 PO; +MELAPOW2; +MOBI15TA PO; +OPTI0.5D3 EACH EYE; +PANT20TA2 PO; +PANT40TA3 PO; +SUCR1TAB PO; +TRAM50TA PO; +VITA1000 PO
[2017-05-12 09:56] LABS: BACTERIA, URINE OCC /hpf; BLOOD, URINE SMALL (NEG); COMMENT (UR) CULTURE INDICATED; CULTURE IF INDICATED CULTURE INDICATED; GLUCOSE,URINE NEG (NEG); HYALINE CAST, URINE 2 /lpf (RARE); KETONE, URINE NEG (NEG); MUCUS URINE FEW /lpf (OCC); NITRITE,URINE NEG (NEG); PH, URINE 5.5 (5.0-8.5); SQUAMOUS EPITHELIAL CELL URINE 1 /hpf (0-5); URINE COLOR YELLOW (YELLW/STRAW)
[2017-05-12 09:57] LABS: AUTOMATED NEUTROPHIL # 3.7 TH/MM3 (1.8-7.7); BASOPHIL % 0.3 % (0.0-2.0); EOSINOPHIL # 0.1 TH/MM3 (0-0.4); EOSINOPHIL % 1.7 % (0.0-4.0); HEMATOCRIT 36.1 % (39.0-51.0); HEMO FLAGS DIFF FINAL; LYMPH % 28.9 % (9.0-44.0); LYMPHOCYTE # 1.9 TH/MM3 (1.0-4.8); MEAN CELL VOLUME 86.6 FL (80.0-100.0); MEAN CORPUSCULAR HEMOGLOBIN 28.9 PG (27.0-34.0); MEAN CORPUSCULAR HGB CONC 33.4 % (32.0-36.0); MONO % 12.6 % (0.0-8.0); NEUT % 56.5 % (16.0-70.0); PLATELET COUNT 271 TH/MM3 (150-450); RED BLOOD COUNT 4.17 MIL/MM3 (4.50-5.90); WHITE BLOOD COUNT 6.6 TH/MM3 (4.0-11.0)
== END ==
LOC: CPRE 08:59
PROVIDERS: ATTEND Orthopaedic Surgery Orthopaedic Surgery of the Spine
DX: Z01.810 Encounter for preprocedural cardiovascular examination (principal); Z01.812 Encounter for preprocedural laboratory examination; M50.320 Other cervical disc degeneration, mid-cervical region, unspecified level; M50.33 Other cervical disc degeneration, cervicothoracic region; R82.99 Other abnormal findings in urine
CPT/HCPCS: 36415; 81001; 85025; 87086